=== PATIENT | male | born 1995 | race Caucasian/White ===

== ENCOUNTER 2017-05-02 16:02 | Emergency (ER) | payer BC ==
[2017-05-02] MEDS ORDERED: DIAZEPAM 5 MG TAB PO ONE (17:06)
--- NOTE | 2017-05-02 17:06 | EDPHY ---
H & P Time Seen by Provider: 05/02/17 16:39 HPI/ROS: CHIEF COMPLAINT: Anxiety heart palpitations HISTORY OF PRESENT ILLNESS: this is a 21-year-old male patient presented to the emergency department complaining of anxiety and heart palpitation. patient states he has been here in [place] for [address] traveling to [place] for his father's , states had several episodes of anxiety feeling heart palpitations numbness and tingling in his hands in his lips. patient states he normally smokes pot when he feels anxious, has not smoked any today [place], increased feeling of anxiety. patient states he had wanted a prescription for something for his anxiety to get him to [place]. denies any shortness of breath chest pain REVIEW OF SYSTEMS: Constitutional: No fever, no chills. Eyes: No discharge. no blurred vision ENT: No sore throat. Cardiovascular: No chest pain. palpitations. Respiratory: No cough, no shortness of breath. Gastrointestinal: No abdominal pain, no vomiting. Genitourinary: No hematuria. Musculoskeletal: No back pain. Skin: No rashes. Neurological: No headache. no dizziness Smoking Status: Former smoker Physical Exam: General Appearance: Alert, no distress. HEENT: Pupils equal and round no pallor or injection. Mucous membranes moist. Respiratory: There are no retractions, lungs are clear to auscultation. Cardiovascular: Regular rate and rhythm. Gastrointestinal: Abdomen is soft and nontender, no masses, bowel sounds normal. Neurological: No focal deficits. all cranial nerves intact. ambulatory without gait disturbance Skin: warm and dry no pallor no diaphoresis Musculoskeletal: symmetrical, full range of motion Psychiatric: oriented x3, calm no agitation acting appropriate. no SI or HI Constitutional: Initial Vital Signs Temperature (C) 36.6 C 05/02/17 16:11 Heart Rate 78 05/02/17 16:11 Respiratory Rate 18 05/02/17 16:11 Blood Pressure 117/71 05/02/17 16:11 O2 Sat (%) 100 05/02/17 16:11 O2 Delivery Mode Room Air Allergies/Adverse Reactions: No Known Allergies Allergy (Unverified 05/02/17 16:10) Home Medications: Medication Instructions Recorded Diazepam [Valium 2 MG (*)] 2 mg PO PRN PRN #2 tab 06/04/17 Medical Decision Making ED Course/Re-evaluation: discussed ED plan of care: EKG shows sinus rhythm. Valium 5 mg p.o. 1720: discharge home---> stable, discussed discharge instructions with patient Differential Diagnosis: other differential diagnosis considered but not limited to panic attack, hardik, and suicidal ideation - Data Points Medications Given: Discontinued Medications Diazepam (Valium) 5 mg PO EDNOW ONE Stop: 05/02/17 17:07 Last Admin: 05/02/17 17:17 Dose: 5 mg Departure - Departure Disposition: Home, Routine, Self-Care Clinical Impression: Anxiety Condition: Good Instructions: Generalized Anxiety Disorder (ED) Additional Instructions: Discussed discharge instructions 1. follow up with your primary care provider 2. EKG today was normal 3. utilize different techniques to decrease your anxiety Referrals: [facility] [Other] - As per Instructions Prescriptions: Diazepam [Valium 2 MG (*)] 2 mg PO PRN PRN #2 tab PRN Reason: Anxiety
--- NOTE | 2017-05-02 17:07 | CPEKG ---
Heart Rate: 64 RR Interval: 938 P-R Interval: 136 QRSD Interval: 84 QT Interval: 400 QTC Interval: 413 P [place]: 56 QRS [place]: 73 T Wave [place]: 35 EKG Severity - NORMAL ECG - EKG Impression: SINUS RHYTHM Electronically Signed By: Jesus Orlando 02-May-2017 18:46:49
[2017-05-02 17:30] VITALS: BP 128/52; PULSE 58; RESP 16; TEMP 97.7; O2SAT 99
== END 2017-05-02 17:27 | disposition home or self-care (01) ==
DX: F41.9 Anxiety disorder, unspecified (principal); Z87.891 Personal history of nicotine dependence